=== PATIENT | male | born 1955 | race Caucasian/White ===

== ENCOUNTER 2021-08-26 13:38 | Emergency (ER) | payer MEDICAID, OTHER ==
[~2021-08-26] VITALS: Ht 182.9 cm; Wt 82.0 kg
[2021-08-26 14:38] VITALS: BP 160/99
[2021-08-26] MEDS ORDERED: CLINDAMYCIN HCL 150MG CAPSULE PO ONE (14:45)
[2021-08-26] MEDS ORDERED: IBUPROFEN 800MG TABLET PO ONE (14:45)
[2021-08-26] MEDS ORDERED: T3 PO (14:47)
[2021-08-26] MEDS ORDERED: CLIN300C12 MT (14:47)
[2021-08-26] MEDS ORDERED: IBUP-2030 MT (14:47)
== END 2021-08-26 15:22 | disposition home or self-care (01) ==
LOC: ER 13:38
DX: K04.7 Periapical abscess without sinus (principal); Z90.49 Acquired absence of other specified parts of digestive tract; Z90.81 Acquired absence of spleen; Z96.659 Presence of unspecified artificial knee joint; Z88.0 Allergy status to penicillin
CPT/HCPCS: 99283

== ENCOUNTER 2022-10-30 15:07 | Emergency (ER) | payer MEDICAID, MEDICARE ==
[~2022-10-30] VITALS: Ht 195.6 cm; Wt 118.0 kg
[~2022-10-30 15:07] MED LIST: CLIN-194 MT; IBUP-2030 MT; T3 PO
[2022-10-30 17:50] LABS: BASOPHILS % 0.7 % (0.0-2.0); EOSINOPHILS % 1.9 % (0.0-5.0); HEMATOCRIT. 44.9 % (42.0-52.0); LYMPHOCYTES % 21.7 % (20.0-50.0); MEAN CORPUSCULAR HEMOGLOBIN 31.2 pg (28.0-32.0); MEAN CORPUSCULAR VOLUME 93.1 fL (80.0-94.0); MEAN PLATELET VOLUME 10.3 fl (7.4-10.4); MONOCYTES % 7.9 % (2.0-8.0); NEUTROPHILS % 67.8 % (40.0-76.0); PLATELET 229 x1000/uL (130-400); RED BLOOD CELL COUNT 4.83 mill/uL (4.7-6.1); RED CELL DISTRIBUTION WIDTH 14.4 % (11.6-14.6)
[2022-10-30 18:04] LABS: CHLORIDE 108 mEq/L (98-107)
[2022-10-30 20:34] VITALS: BP 138/76
== END 2022-10-30 20:35 | disposition home or self-care (01) ==
LOC: ER 15:30 → CANBEDREQ 11-01 19:39
DX: R06.00 Dyspnea, unspecified (principal); I10 Essential (primary) hypertension; Z88.0 Allergy status to penicillin; Z90.49 Acquired absence of other specified parts of digestive tract
CPT/HCPCS: 36415; 71045; 80053; 83880; 84484; 85025; 85379; 93005; 99285

== ENCOUNTER 2024-04-09 12:01 | Emergency (ER) | payer MEDICARE ==
[~2024-04-09] VITALS: Ht 182.9 cm; Wt 100.0 kg
[2024-04-09 12:27] VITALS: O2SAT 95
[2024-04-09 13:27] LABS: BASOPHILS % 0.7 % (0.0-2.0); EOSINOPHILS % 0.8 % (0.0-5.0); HEMATOCRIT. 47.8 % (42.0-52.0); HEMOGLOBIN. 15.9 g/dL (14.0-18.0); LYMPHOCYTES % 21.2 % (20.0-50.0); MEAN CORPUSCULAR HEMOGLOBIN 31.2 pg (28.0-32.0); MEAN CORPUSCULAR HGB CONC 33.2 g/dL (31.0-37.0); MEAN CORPUSCULAR VOLUME 93.8 fL (80.0-94.0); MEAN PLATELET VOLUME 9.2 fl (7.4-10.4); MONOCYTES % 10.5 % (2.0-8.0); NEUTROPHILS % 66.8 % (40.0-76.0); PLATELET 260 x1000/uL (130-400); RED BLOOD CELL COUNT 5.09 mill/uL (4.7-6.1); RED CELL DISTRIBUTION WIDTH 14.1 % (11.6-14.6)
[2024-04-09 13:32] LABS: CHLORIDE 107 mEq/L (98-107); SODIUM 138 mEq/L (136-145)
[2024-04-09 13:33] LABS: CARBON DIOXIDE 21 mEq/L (21-32)
[2024-04-09 13:34] LABS: CALCIUM 9.7 mg/dL (8.7-10.4)
[2024-04-09 13:38] LABS: CREATININE 0.7 mg/dL (0.6-1.3); GLUCOSE 103 mg/dL (70-105); UREA NITROGEN BLOOD 10 mg/dL (9-23)
[2024-04-09 14:14] VITALS: BP 129/91; PULSE 89; RESP 18; TEMP 98.5
[2024-04-09] MEDS ORDERED: LORA-249 MT ×2 (14:32→14:34)
== END 2024-04-09 14:20 | disposition home or self-care (01) ==
LOC: ER 12:26
DX: H93.13 Tinnitus, bilateral (principal); R00.2 Palpitations; I10 Essential (primary) hypertension; Z90.49 Acquired absence of other specified parts of digestive tract; Z98.890 Other specified postprocedural states; Z88.0 Allergy status to penicillin
CPT/HCPCS: 36415; 80048; 85025; 93005; 99284